=== PATIENT | female | born 1980 | race Two or more races ===

== ENCOUNTER 2024-10-01 11:21 | Emergency (ER) | payer OTHER ==
[~2024-10-01] VITALS: Ht 160 cm; Wt 132.3 kg
[~2024-10-01 11:21] MED LIST: IBUP-1455 PO
--- NOTE | 2024-10-01 11:42 | ED.PDOC ---
Musculoskeletal HPI Comments HPI: Poor Historian. 44-year-old female presents to emergency department for evaluation of left knee pain status post mechanical fall from a standing position. Patient states that she slipped and fell forward and landed on her left knee. Patient has been ambulating and bearing weight. Patient was morbidly obese. Patient points to her left anterior lateral aspect of her knee joint where her pain is no apparent deformity or bruising. Past Medical History: Past Surgical History: REVIEW OF SYSTEMS: CONSTITUTIONAL: Denies acute: fever, diaphoresis, chills, generalized weakness. HEAD: Denies acute: headache, photophobia Eyes: Denies acute: Double vision, vision loss, eye pain, eye discharge. EARS: Denies acute: tinnitus, hearing loss, ear discharge, ear pain, THROAT: Denies acute: sore throat, swelling, difficulty swallowing , pain with swallowing, change in voice. NECK: Denies acute: neck pain, neck swelling, stiff neck. HEART: Denies acute : chest pain, palpitations, LUNGS: Denies acute: SOB, wheezing, cough, hemoptysis ABDOMEN: Denies acute: abdominal pain, Nausea, Vomiting, diarrhea, melena , hematemesis, hematochezia SKIN: Denies acute: rash, redness, lesions, itchiness. EXTREMITIES: Denies acute: calf pain, numbness, tingling, weakness, Denies acute: Low back pain. Neuro: Denies acute: focal neurological deficit, motor or sensory focal neurological deficit, tremors, seizure like activity, confusion, dizziness, change in mental status, loss of bowel or bladder function, cauda equina like symptoms. : Denies acute: dysuria, hematuria, flank pain, increase in urinary frequency. PSYCH: Denies acute: hallucination, suicidal ideation, homicidal ideation. FEMALE: Denies acute: abnormal vaginal bleeding, foul odor, unusual discharge. PHYSICAL EXAM: General: no acute distress, awake and alert. Head: normocephalic, atraumatic. Neck: supple, trachea is midline, no swelling. Throat: Normal phonation. Eyes:, no erythema, no purulent discharge, no proptosis, no icterus. Heart: regular rate, regular rhythm, no significant murmur appreciated. Lungs: no apparent respiratory distress, Able to speak in full sentences. No wheezing, no rhonchi, no crackles. No stridors Clear to auscultation bilaterally. Abdomen: non tender to palpation, non distended, soft, no guarding, no rebound, + bowel sounds. Morbidly obese Neuro: Awake, Alert, oriented to name, self, situation, follows commands GCS=15. Speech is normal. Skin: no petechia, no purpura, no cyanosis, non-pale, not jaundice. Lower extremities: --no - Pitting edema no deformity, no focal swelling, no calf TTP. Makes eye contact. moves all four extremities. Face: no apparent facial droop. Ambulating in the ED independently. Evaluation of the area of complaint: Left knee no apparent deformity or swelling. Patient ambulating independently in the ED. patient points specifically to the left lateral aspect of her knee joint anteriorly where her pain is. The area is tender to palpation. No apparent bruising or discoloration. Patient is neurovascularly intact in the affected extremity. Pedal pulses palpable. Sensory and motor are present. 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 Was a procedure done?: No Differential Diagnosis EXT Differential Diagnosis: Cellulitis, Deep Vein Thrombosis, Compartment Syndrome, Fracture, Sprain, Dislocation, Gout, DJD, Contusion, Strain, Septic, Neurovascular injury, Arthritis X-Ray, Labs, Meds, VS Vital Signs Date Time Temp Pulse Resp B/P (MAP) Pulse Ox O2 Delivery O2 Flow Rate FiO2 10/01/24 14:44 97.6 89 17 134/88 (103) 97 97.6 10/01/24 11:41 98.5 97 20 186/91 (122) 99 98.5 [place] [address] Ph: [phone] DIAGNOSTIC IMAGING Diagnostic Imaging Report : [id number] Signed PATIENT: JO HEMPHILLCCT: [id number] UNIT: [id number] : 1980 LOC: ER ROOM / BED: / AGE / SEX: 44 / F ADM STATUS: REG ER SERVICE [id number] ORDERING PHYSICIAN: WILLIAN PIMENTEL DO PROCEDURE(s): LKNE3 - L KNEE 3V XRAY REASON: L knee pain, fall ORDER NUMBER(s): [id number], ACCESSION NUMBER(s): [id number] CLINICAL INDICATION: L knee pain, fall TECHNIQUE: 3 radiographic views of the left knee were obtained. Comparison: None FINDINGS/IMPRESSION: There is no evidence of acute fracture or dislocation. Mild tricompartmental knee joint osteoarthrosis. Trace left knee joint effusion. ATED BY: FRANCHESKA WADE MD DICTATED DATE/TIME: 10/01/241225 SIGNED BY: FRANCHESKA WADE MD SIGNED DATE/TIME: 10/01/241225 CC: Time of 1ST Reevaluation: 23:39 Reevaluation 1ST: Unchanged Patient Education/Counseling: Diagnosis, Treatment Family Education/Counseling: No Family Present Comments Patient presented with the above HPI.----knee pain/injury--workup was initiated. patient was found with the above mentioned diagnosis. the following medications were ordered: please refer to order lists of meds and tests obtained by myself Dr. Pimentel. Patient ED course and VS have been stabilized. Patient has been reassessed in the ED and remained in a stable condition. Pertinent incidental findings were discussed with the patient and/or family. Patient/family voices understanding and is agreeable with plan. Patient has been observed in the ED adequate length of time to insure improvement/stability. Escalation of care considered: Consideration of escalation to observation or admission Patient was DISCHARGED home in a stable condition. All the reports of any imaging studies that were ordered by myself were reviewed by myself. Departure 1 Departure Time of Disposition: 12:41 Impression: Primary Impression: Left anterior knee pain Additional Impression: Joint effusion of knee Disposition: HOME / SELF CARE / HOMELESS Condition: Stable Additional Instructions: Additional discharge instructions: You MUST follow-up with your primary care/family doctor in 1 to 2 days. If you are unable to see your primary care/family doctor, please return to our emergency room for re-assessment and re-evaluation in 1 to 2 days. Return to the emergency room here in our facility or to the nearest ER [facility] if your symptoms change or worsen. CONSULTATIONS: you MUST Follow-up for consultation as soon as possible with: -orthopedic doctor in 1-2 days. Please call for appointment. You MUST call the consultants office yourself to make an appointment. You may need to arrange that through your insurance and/or your primary/family doctor. If you are unable to see the business solutions consultant in 1 to 2 days, you must return to our emergency room (or any other ER of your choice) for re-assessment and re- evaluation. Adequate fluid hydration. Leg elevation, use [id number] Tylenol ibuprofen with food as instructed for pain control. Below is a copy of your radiological report for follow up: [place] [address] Ph: [phone] DIAGNOSTIC IMAGING Diagnostic Imaging Report : [id number] Signed PATIENT: PATRICIA HEMPHILL ACCT: [id number] UNIT: [id number] : 1980 LOC: ER ROOM / BED: / AGE / SEX: 44 / F ADM STATUS: REG ER SERVICE 1139 ORDERING PHYSICIAN: WILLIAN PIMENTEL DO PROCEDURE(s): LKNE3 - L KNEE 3V XRAY REASON: L knee pain, fall ORDER NUMBER(s): [id number], ACCESSION NUMBER(s): [id number] CLINICAL INDICATION: L knee pain, fall TECHNIQUE: 3 radiographic views of the left knee were obtained. Comparison: None FINDINGS/IMPRESSION: There is no evidence of acute fracture or dislocation. Mild tricompartmental knee joint osteoarthrosis. Trace left knee joint effusion. ATED BY: FRANCHESKA WADE MD DICTATED DATE/TIME: 10/01/24 1226 SIGNED BY: FRANCHESKA WADE MD SIGNED DATE/TIME: 10/01/24 1226 CC: Discharged With: Self I personally scribed for WILLIAN PIMENTEL DO ([email or web address]) on 10/01/24 at 12:59. Electr onically submitted by Jalen Estevez ([email or web address]). WILLIAN PIMENTEL DO Oct 01, 2024 11:42
--- NOTE | 2024-10-01 12:28 | DVH ---
CLINICAL INDICATION: L knee pain, fall TECHNIQUE: 3 radiographic views of the left knee were obtained. Comparison: None FINDINGS/IMPRESSION: There is no evidence of acute fracture or dislocation. Mild tricompartmental knee joint osteoarthrosis. Trace left knee joint effusion.
[2024-10-01 14:44] VITALS: BP 134/88; PULSE 89; RESP 17; TEMP 97.6; O2SAT 97
== END 2024-10-01 14:58 | disposition home or self-care (01) ==
LOC: ER 11:21
DX: M25.462 Effusion, left knee (principal); E66.01 Morbid (severe) obesity due to excess calories; Z68.43 Body mass index [BMI] 50.0-59.9, adult; W01.0XXA Fall on same level from slipping, tripping and stumbling without subsequent striking against object, initial encounter; Y93.89 Activity, other specified; Y92.89 Other specified places as the place of occurrence of the external cause; Y99.8 Other external cause status
CPT/HCPCS: 73562